=== PATIENT | female | born 1960 | race Caucasian/White ===

== ENCOUNTER → 2017-06-22 | Outpatient (CLI) | payer OTHER | END | disposition home or self-care (01) | LOC: GMAH 17:41 | PROVIDERS: ATTEND Family Medicine | DX: M54.5 Low back pain (principal) ==

== ENCOUNTER → 2017-09-07 | Outpatient (CLI) | payer OTHER ==
--- NOTE | 2017-09-08 07:57 | MRI ---
EXAM DESCRIPTION: Abdomen w/wo Contrast CLINICAL HISTORY: 57 years Female, NEOPLASM OF UNCERTAIN BEHAVIOR OF LIVER COMPARISON: No comparison images are available at this institution. TECHNIQUE: Pre and postcontrast multiplanar multisequence magnetic resonance imaging of the abdomen was performed using liver protocol. FINDINGS: 4 lesions are demonstrated within the right lobe of the liver. These lesions are hyperintense on T2 with the exception of the lesion seen in segment VII posteriorly which shows a central scar. Postcontrast imaging of these lesions show interrupted peripheral nodular enhancement with delayed centripetal filling consistent with cavernous hemangiomas. A benign nonenhancing lesion is seen in the left lobe of the liver segment II consistent with a cyst and or hamartoma. No aggressive liver lesions are present. No significant intrahepatic ductal dilatation. Liver is normal in size and signal intensity. Gallbladder and biliary system are unremarkable. No pancreatic mass or pancreatic ductal dilatation. The pancreatic inflammation. Normal spleen size. Normal-appearing bilateral adrenal glands. Symmetric renal cortical enhancement is seen. No aggressive renal lesions. Normal vascular flow voids. No lymphadenopathy or free fluid. No peritoneal implants. No aggressive marrow infiltrating disease process. IMPRESSION: Benign cavernous hemangiomas of the right lobe of the liver. Benign cyst and or hamartoma left lobe of the liver. Electronically signed by: Jorden Marcos MD 09/08/2017 7:56 AM [facility]
--- NOTE | 2017-09-08 16:04 | MAM ---
EXAM DESCRIPTION: Screening Mammogram,Bilateral: Digital Mammography CLINICAL HISTORY: 57 years Female SCREENING no complaints. Mother with breast cancer. Postmenopausal. No HRT. Prior right breast biopsy. COMPARISON: 2-D digital screening bilateral study 08/29/2013 and 08/09/2009.. No prior reports available. TECHNIQUE: Bilateral CC and MLO projection full-field images, 2-D digital screening mammographic technique. CAD was utilized. FINDINGS: The breast parenchymal density pattern is: Extremely dense breast tissue, which lowers the sensitivity of mammography. No skin thickening or nipple retraction bilateral solitary microcalcifications. Bilateral vascular calcifications. Bilateral intramammary lymph nodes. No focal, stellate mass or density, focal asymmetry , and no suspicious microcalcifications bilaterally. Stable mammograms compared to the prior study, taking into account differences in mammographic technique. IMPRESSION: BI-RADS CATEGORY: 2 - BENIGN FINDINGS. FOLLOW UP: Routine digital bilateral screening, one year interval from August 2017. Written communication explaining the IMPRESSION and follow-up, will be mailed to the patient and referring health care provider. According to the [employer], yearly mammograms are recommended starting at age 40 and continuing as long as a woman is in good health. Any breast change noted on a breast self-exam should be reported promptly to the patient's healthcare provider. Breast MRI is recommended for women with an approximately 20-25% or greater lifetime risk of breast cancer, including women with a strong family history of breast or ovarian cancer and women who have been treated for Hodgkin's disease. A negative mammographic report should not delay tissue diagnosis in patients with significant clinical history or physical findings. Extremely dense breast tissue limits the sensitivity of digital mammography. Electronically signed by: Vaughn Alicia MD 09/08/2017 4:03 PM [facility]
== END | disposition home or self-care (01) ==
LOC: MRI 07:44
PROVIDERS: ATTEND Family Medicine
DX: D37.6 Neoplasm of uncertain behavior of liver, gallbladder and bile ducts (principal)
CPT/HCPCS: 74183; 80048; 85025; G0202

== ENCOUNTER → 2020-04-09 | Outpatient (CLI) | payer OTHER ==
--- NOTE | 2020-04-09 10:32 | RAD ---
XR HIP 2 OR MORE VIEWS, XR HIP 2 OR MORE VIEWS, XR PELVIS 1-2 VIEWS HISTORY: 59 years Female HIP PAIN COMPARISON: None. TECHNIQUE: 2 views of bilateral hips as well as a single AP view of the pelvis. FINDINGS: Sacrum partially obscured by superimposed bowel gas. No evidence of acute fracture or dislocation. Severe joint space narrowing of bilateral hips, with [id number] apposition. Subchondral sclerosis and cystic formation is demonstrated bilaterally, consistent with degenerative joint disease. Moderate degenerative changes of the pubic symphysis. Sacroiliac joints appear patent. Small curvilinear metallic structures project over the left lower quadrant of the abdomen, which may represent sequelae of prior surgery. 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 Moderate degenerative changes of the pubic symphysis. No acute osseous injury observed in the hips or pelvis. Electronically signed by: Matthias Dumont MD 04/09/2020 10:30 AM CDT
--- NOTE | 2020-04-09 10:32 | RAD ---
XR HIP 2 OR MORE VIEWS, XR HIP 2 OR MORE VIEWS, XR PELVIS 1-2 VIEWS HISTORY: 59 years Female HIP PAIN COMPARISON: None. TECHNIQUE: 2 views of bilateral hips as well as a single AP view of the pelvis. FINDINGS: Sacrum partially obscured by superimposed bowel gas. No evidence of acute fracture or dislocation. Severe joint space narrowing of bilateral hips, with [id number] apposition. Subchondral sclerosis and cystic formation is demonstrated bilaterally, consistent with degenerative joint disease. Moderate degenerative changes of the pubic symphysis. Sacroiliac joints appear patent. Small curvilinear metallic structures project over the left lower quadrant of the abdomen, which may represent sequelae of prior surgery. 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 Moderate degenerative changes of the pubic symphysis. No acute osseous injury observed in the hips or pelvis. Electronically signed by: Matthias Dumont MD 04/09/2020 10:30 AM CDT
--- NOTE | 2020-04-09 10:33 | RAD ---
XR HIP 2 OR MORE VIEWS, XR HIP 2 OR MORE VIEWS, XR PELVIS 1-2 VIEWS HISTORY: 59 years Female HIP PAIN COMPARISON: None. TECHNIQUE: 2 views of bilateral hips as well as a single AP view of the pelvis. FINDINGS: Sacrum partially obscured by superimposed bowel gas. No evidence of acute fracture or dislocation. Severe joint space narrowing of bilateral hips, with [id number] apposition. Subchondral sclerosis and cystic formation is demonstrated bilaterally, consistent with degenerative joint disease. Moderate degenerative changes of the pubic symphysis. Sacroiliac joints appear patent. Small curvilinear metallic structures project over the left lower quadrant of the abdomen, which may represent sequelae of prior surgery. 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 Moderate degenerative changes of the pubic symphysis. No acute osseous injury observed in the hips or pelvis. Electronically signed by: Matthias Dumont MD 04/09/2020 10:30 AM CDT
== END ==
LOC: RAD 08:17
PROVIDERS: ATTEND Orthopaedic Surgery
DX: Z01.818 Encounter for other preprocedural examination (principal); M16.0 Bilateral primary osteoarthritis of hip

== ENCOUNTER 2020-04-25 06:06 | Inpatient (IN) | payer OTHER ==
[~2020-04-25 06:06] MED LIST: SODIUM CHL 0.9% 100ML MINI-BAG 100 ML IVPB ONE; SODIUM CHLORIDE 0.9% (FLUSH) 10 ML SYG ONE; SODIUM CHLORIDE 0.9% 1000ML 1,000 ML ONE; SODIUM CHLORIDE 0.9% 100ML 100 ML IVPB ONE; SODIUM CHLORIDE 0.9% 250ML 250 ML ONE; TRANEXAMIC ACID 1,000 MG/10 ML VIAL ONE; VANCOMYCIN HCL INJ 1,000 MG VIAL IVPB ONE; ceFAZolin SODIUM 1 GM VIAL ONE
[2020-04-25] MEDS ORDERED: VANCOMYCIN HCL INJ 1,000 MG VIAL IVPB ONE ×3 (06:21→06:52)
[2020-04-25] MEDS ORDERED: ceFAZolin SODIUM 1 GM VIAL ONE (06:21)
[2020-04-25] MEDS ORDERED: BUPIVACAINE 0.5% 30 ML VIAL INJ ONE ×3 (06:21→06:52)
[2020-04-25] MEDS ORDERED: BUPIVACAINE LIPOSOME 13.3 MG/ML VIAL INJ ONE ×2 (06:22→06:52)
[2020-04-25] MEDS ORDERED: ELECTROLYTE-A 1,000 ML IVS ONE ×2 (06:33→08:08)
[2020-04-25] MEDS ORDERED: KETAMINE HCL 100 MG/ML VIAL ONE (06:33)
[2020-04-25] MEDS ORDERED: HYDROmorphone HCL INJ 2 MG/ML VIAL ONE (06:33)
[2020-04-25] MEDS ORDERED: MIDAZOLAM INJ 5 MG/5 ML VIAL ONE (06:33)
[2020-04-25] MEDS ORDERED: TRANEXAMIC ACID 1,000 MG/10 ML VIAL IV ONE (06:36)
[2020-04-25] MEDS ORDERED: ceFAZolin SODIUM 1 GM VIAL IRRIG ONE (06:52)
[2020-04-25] MEDS ORDERED: EPINEPHrine HCL AMP 1 MG/ML AMP ONE (07:00)
[2020-04-25] MEDS ORDERED: diphenhydrAMINE HCL 50 MG/ML VIAL ONE (07:00)
[2020-04-25] MEDS ORDERED: DEXAMETHASONE INJ 10 MG/ML VIAL ONE (07:00)
[2020-04-25] MEDS ORDERED: PHENYLEPHRINE INJ 1ML 10 MG/ML VIAL ONE (07:00)
[2020-04-25] MEDS ORDERED: PROPOFOL 200 MG/20 ML VIAL IV ONE (07:00)
[2020-04-25] MEDS ORDERED: LIDOCAINE 1% 10 ML VIAL INJ ONE (07:00)
[2020-04-25] MEDS ORDERED: SODIUM CHLORIDE 0.9% 50 ML VIAL ONE (07:00)
[2020-04-25] MEDS ORDERED: ePHEDrine SULF 50 MG/ML ONE (07:00)
[2020-04-25] MEDS ORDERED: MAGNESIUM SULFATE INJ 1 GM/2 ML VIAL ONE (07:00)
[2020-04-25] MEDS ORDERED: SODIUM CHLORIDE 0.9% (FLUSH) 10 ML SYG IV PRN (09:33)
[2020-04-25] MEDS ORDERED: BENZOCAINE-MENTH LOZ (CEPACOL) 1 EA LOZ MT PRN (09:33)
[2020-04-25] MEDS ORDERED: TEMAZEPAM 15 MG CAP PO PRN (09:33)
[2020-04-25] MEDS ORDERED: ACETAMINOPHEN 500 MG TAB PO PRN (09:33)
[2020-04-25] MEDS ORDERED: TRANEXAMIC ACID INJ 1,000 MG in SODIUM CHLORIDE 0.9% 100ML 100 ML IVPB ONE (09:33)
[2020-04-25] MEDS ORDERED: ACETAMINOPHEN 325 MG TAB PO PRN (09:33)
[2020-04-25] MEDS ORDERED: ZOLPIDEM TARTRATE 5 MG TAB PO PRN (09:33)
[2020-04-25] MEDS ORDERED: MORPHINE SULFATE INJ 10 MG/ML VIAL IM PRN (09:33)
[2020-04-25] MEDS ORDERED: MAGNESIUM HYDROXIDE 30 ML UD PO PRN (09:33)
[2020-04-25] MEDS ORDERED: traMADol HCL 50 MG TAB PO PRN (09:33)
[2020-04-25] MEDS ORDERED: BISACODYL SUPPOSITORY 10 MG PR PRN (09:33)
[2020-04-25] MEDS ORDERED: MORPHINE SULFATE INJ 10 MG/ML VIAL IV PRN (09:33)
[2020-04-25] MEDS ORDERED: NALOXONE HCL INJ 0.4 MG/ML VIAL IV PRN (09:33)
[2020-04-25] MEDS ORDERED: PROMETHAZINE HCL INJ 25 MG in SODIUM CHLORIDE 0.9% 50ML 50 ML IVPB PRN (09:33)
[2020-04-25] MEDS ORDERED: ALUMINUM & MAGNESIUM HYDROXIDE 30 ML UD PO PRN (09:33)
[2020-04-25] MEDS ORDERED: CYCLOBENZAPRINE HCL 10 MG TAB PO PRN (09:33)
[2020-04-25] MEDS ORDERED: PROMETHAZINE HCL INJ 12.5 MG in SODIUM CHLORIDE 0.9% 50ML 50 ML IVPB PRN (09:33)
[2020-04-25] MEDS ORDERED: DEX 5% W/NACL 0.45% 1000ML 1,000 ML IVS PRN (09:33)
[2020-04-25] MEDS ORDERED: SODIUM CHLORIDE 0.9% 1000ML 1,000 ML ONE (09:58)
[2020-04-25] MEDS ORDERED: MORPHINE PCA 1 MG/ML 100 ML BAG IVPB SCH (10:00)
[2020-04-25] MEDS ORDERED: CADD ADMIN SET 1 EA PKG INJ ONE (10:05)
[2020-04-25] MEDS: IV SET AND CAP CHANGE INJ INJ SCH (11:14)
--- NOTE | 2020-04-25 11:36 | RAD ---
EXAM DESCRIPTION: Pelvis x-ray single view CLINICAL HISTORY: 60 years Female, post-op COMPARISON: Previous x-ray pelvis April 09, 2020 FINDINGS: X-ray pelvis shows large amount of fecal material in the rectal region. Surgical clips in the mid lower abdomen. Total left hip arthroplasty is present with air in the soft tissues of the left hip. Degenerative changes at the pubic symphysis. High-grade cartilage loss in the right hip is seen with sclerotic superior right femoral head and right acetabular roof. Bones of the pelvic ring appear intact. IMPRESSION: Total left hip arthroplasty. No complicating fracture. Advanced osteoarthrosis of the right hip. Electronically signed by: Benigno Tapia MD 04/25/2020 11:35 AM CDT
--- NOTE | 2020-04-25 11:38 | RAD ---
EXAM DESCRIPTION: Hip x-ray,Left 2 Views CLINICAL HISTORY: 60 years, Female, post-op COMPARISON: Previous left hip x-ray April 09, 2020 TECHNIQUE: AP and frog leg lateral views of the left hip FINDINGS: 2 x-ray views of the left hip reveal total left hip arthroplasty. Air in the soft tissues consistent with recent surgery. No complicating fracture. Bones of the left hemipelvis has included appear intact. Normal alignment of the acetabular and femoral components on AP and frog leg lateral x-ray views. IMPRESSION: Total left hip arthroplasty. Electronically signed by: Benigno Tapia MD 04/25/2020 11:37 AM CDT
[2020-04-25] MEDS ORDERED: diphenhydrAMINE HCL 50 MG/ML VIAL IV PRN (11:58)
[2020-04-25] MEDS ORDERED: SULFA/TRIMETH 800/160 (DS) TAB 1 EA TAB PO ONE (12:30)
--- NOTE | 2020-04-25 13:15 | CONS ---
SUPERVISING PHYSICIAN: King Garcia MD DATE OF CONSULTATION: 04/25/20 HISTORY OF PRESENT ILLNESS: This is a 60-year-old female patient who has had a history of osteoarthritis of the left hip. She has tried conservative measures and she have failed to gain any relief from her pain. She requested Dr. Mj Kirby, orthopedic surgeon, for operative intervention. She was admitted this morning for left total hip replacement performed by Dr. Kirby. She had no problems intraoperatively and I am seeing her postoperatively on the Medical/Surgical Floor. PAST MEDICAL HISTORY: 1. Seizure disorder. It is unknown when her last seizure was. She is presently on medication. 2. Rheumatoid arthritis. 3. Fibromyalgia. PAST SURGICAL HISTORY: 1. Hysterectomy. 2. Lumpectomy. OUTPATIENT MEDICATIONS: Per the EMR. ALLERGIES: PENICILLIN. FAMILY HISTORY: Noncontributory. SOCIAL HISTORY: She lives in [place]. She denies ETOH, tobacco or illicit drug. Use REVIEW OF SYSTEMS: Negative except as per history of present illness. PHYSICAL EXAMINATION: VITAL SIGNS: Temperature 96.6, heart rate 83, blood pressure 91/64, respiratory rate 16, O2 saturation 92% on 4 liters nasal cannula. GENERAL: This is a 60-year-old female patient lying in her hospital bed. She is in no acute distress. HEENT: Normocephalic, atraumatic. Pupils are equal and reactive. Oropharynx is clear. NECK: Supple without mass. RESPIRATORY: Essentially clear to auscultation bilaterally. CHEST: There is equal rise and fall of the chest with inspiration and expiration. CARDIOVASCULAR: Regular rate and rhythm. GASTROINTESTINAL: Abdomen is soft, nondistended, nontender. Bowel sounds are positive. EXTREMITIES: She has a dressing to her left lateral hip that is dry and intact. Bilateral pedal pulses are palpable at +2. NEUROLOGIC: She is somewhat sleepy, but answers questions appropriately. She is oriented x3. Cranial nerves II-XII are grossly intact as tested. SKIN: Warm and dry. LABORATORY: WBCs 3.9, hemoglobin 13.6, hematocrit 39.5. Sodium 133, potassium 3.4, chloride 98. Urinalysis shows small amount of bilirubin, 2+ urine bacteria and 1+ budding yeast. UDS is positive for opiates, otherwise is negative. X- rays are per the EMR. IMPRESSION: 1. Osteoarthritis of the left hip status post left total hip replacement performed by Dr. Mj Kirby, orthopedic surgeon, postoperative day #0. 2. Seizure disorder. 3. Rheumatoid arthritis. 4. Fibromyalgia. PLAN: We will continue present supportive care. Orthopedic issues will be per Dr. Mj Kirby, orthopedic surgeon. She will begin her physical therapy for strengthening and conditioning tomorrow with physical therapy department at the hospital. Her home medications have been restarted. I will repeat some of her lab in the morning. I encouraged good pulmonary hygiene. We will continue to monitor the patient closely and follow as needed. #[id number] [facility]
[2020-04-25] MEDS: ceFAZolin SODIUM 2 GM in SODIUM CHL 0.9% 50ML MIN-BAG+ 50 ML IVPB SCH ×2 (17:07→23:30)
[2020-04-25] MEDS: CELECOXIB 100 MG CAP PO SCH (18:37)
[2020-04-25] MEDS: VANCOMYCIN HCL INJ 1,000 MG in SODIUM CHLORIDE 0.9% 250ML 250 ML IVPB SCH (18:37)
[2020-04-25] MEDS ORDERED: DOCUSATE CALCIUM 240 MG CAP ONE (19:08)
[2020-04-25] MEDS ORDERED: lamoTRIgine 100 MG TAB ONE (19:08)
[2020-04-25] MEDS ORDERED: ENOXAPARIN SODIUM 30 MG/0.3 ML SYG SUBCU ONE (19:09)
[2020-04-25] MEDS ORDERED: PREGABALIN 100 MG CAP ONE (19:09)
[2020-04-25] MEDS ORDERED: tiZANidine 4 MG TAB ONE (19:09)
[2020-04-25] MEDS ORDERED: FOLIC ACID 1 MG TAB ONE (19:09)
[2020-04-25] MEDS ORDERED: VENLAFAXINE XR 75 MG CAP ONE (19:09)
[2020-04-25] MEDS: AMITRIPTYLINE HCL 25 MG TAB PO SCH (20:45)
[2020-04-25] MEDS: lamoTRIgine 100 MG TAB PO SCH (20:47)
[2020-04-25] MEDS: FOLIC ACID 1 MG TAB PO SCH (20:47)
[2020-04-25] MEDS: PREGABALIN 75 MG CAP PO SCH (20:53)
[2020-04-25] MEDS: DOCUSATE CALCIUM 240 MG CAP PO SCH (20:54)
[2020-04-25] MEDS: rifAMPin 300 MG CAP PO SCH (20:57)
[2020-04-25] MEDS: tiZANidine 4 MG TAB PO SCH (20:58)
[2020-04-25] MEDS ORDERED: LAMOTRIGINE 150 MG PO SCH (21:00)
[2020-04-25] MEDS ORDERED: ALENDRONATE SODIUM 70 MG PO SCH (21:00)
[2020-04-25] MEDS ORDERED: NON-FORMULARY MEDICATION 1 EA MIS (Venlafaxine Hcl [Venlafaxine Hcl Er] 150 MG) PO SCH (21:00)
[2020-04-25] MEDS ORDERED: AMITRIPTYLINE HCL 10 MG TAB PO SCH (21:00)
[2020-04-25] MEDS: ONDANSETRON INJ 4 MG/2 ML VIAL IV PRN (21:27)
[2020-04-25] MEDS: ENOXAPARIN SODIUM 30 MG/0.3 ML SYG SUBCU SCH (23:00)
[2020-04-26] MEDS: HYDROcodone 5MG/APAP 325MG 1 EA TAB PO PRN ×3 (00:33→18:02)
[2020-04-26] MEDS: VANCOMYCIN HCL INJ 1,000 MG in SODIUM CHLORIDE 0.9% 250ML 250 ML IVPB SCH (05:39)
[2020-04-26] MEDS: ONDANSETRON INJ 4 MG/2 ML VIAL IV PRN (06:23)
[2020-04-26] MEDS: ceFAZolin SODIUM 2 GM in SODIUM CHL 0.9% 50ML MIN-BAG+ 50 ML IVPB SCH (07:35)
[2020-04-26] MEDS: CELECOXIB 100 MG CAP PO SCH ×2 (07:35→17:24)
--- NOTE | 2020-04-26 08:23 | OP ---
DATE OF PROCEDURE: 04/25/20 PREOPERATIVE DIAGNOSIS: 1. Osteoarthritis of the left hip. POSTOPERATIVE DIAGNOSIS: 1. Osteoarthritis of the left hip. PROCEDURE: 1. Left total hip arthroplasty. SURGEON: Mj Kirby MD. [employer] ARCHITECT: Vaughn Jeffrey CST, SA-C. ANESTHESIA: General anesthesia. COMPLICATIONS: None. FINDINGS: Severe arthritis of the hip. INDICATION: Ms. Gonzalez has a history of severe pain in both hips with diagnoses of both osteoarthritis and rheumatoid arthritis. Because of her ongoing pain and deformity secondary to that, she has requested operative intervention. After discussing the risks, benefits and alternatives to that, the patient has given informed consent for total hip arthroplasty. PROCEDURE: The patient was brought to the Operating Room and placed in supine position. General anesthesia was induced and the patient was transitioned into the lateral decubitus position. After transitioning to the lateral decubitus position, the leg and hemipelvis were sterilely prepped and draped. Following prepping and draping, the hip was approached with a lateral incision. The iliotibial band was split and the anterior one-third of the abductor musculature was elevated. Capsulotomy was performed and the hip was dislocated. Bone graft was taken from the femoral head and after removal of the bone graft, the primary femoral neck cut was made. Following primary femoral neck cut, the acetabulum was exposed. The labrum was removed and sequential reaming was undertaken. Once appropriate size reamer was used, a trial cup was placed. The trial cup fit well and the final cup was impacted into place. The fixation was augmented with three screws. The was placed. The hip was externally rotated and the femoral canal was exposed. Sequential broaching was undertaken and with final broach in place, the hip was reduced. Following reduction, the leg was taken through a range of motion. There was no evidence of pending dislocation and no impingement. The hip was then dislocated and trial component was removed. The final component was impacted in place. The hip was again taken through a range of motion. Leg lengths appeared to be equal. Following that, the wound was very thoroughly irrigated and the abductor musculature was reapproximated. The iliotibial band was closed and the skin was closed with a combination of running and interrupted subcuticular stitches. Sterile dressings were placed. The patient was awoken from anesthesia and taken to the Recovery. POSTOPERATIVE PLAN: The patient will begin partial weightbearing on postoperative day 1. COMPONENTS: Domenico Accolade II stem size 6, Tritanium cup size 48 and 32 mm head. [facility][id number] [facility]
--- NOTE | 2020-04-26 08:29 | PN ---
SUPERVISING PHYSICIAN: King Garcia MD DATE: 04/26/20 SUBJECTIVE: The patient is sitting up in bed. She is nauseated. She has received an antiemetic. She will have physical therapy later today. Otherwise, she has no complaints of chest pain or abdominal pain other than the nausea. She said she slept fairly well last night and has had minimal pain. OBJECTIVE: VITAL SIGNS: Temperature 98.3, heart rate 89, blood pressure 110/67, respiratory rate 18,O2 saturation 98% on 1 liter nasal cannula. RESPIRATORY: Essentially clear to auscultation bilaterally. CARDIAC: Regular rate and rhythm. GASTROINTESTINAL: Abdomen is soft, nondistended, nontender. Bowel sounds are positive. EXTREMITIES: She has a dressing to the left lateral hip that is dry and intact. NEUROLOGIC: Awake, alert and oriented times three. LABORATORY: Hemoglobin 11.9, hematocrit 35. Electrolytes are basically within normal limits with the exception of her calcium is slightly low at 7.9. All other labs and films have been reviewed via the EMR. ASSESSMENT: 1. Osteoarthritis of the left hip status post left total hip replacement performed by Dr. Mj Kirby, orthopedic surgeon, postoperative day #1. 2. Seizure disorder. 3. Rheumatoid arthritis. 4. Fibromyalgia. PLAN: We will continue present supportive care. Orthopedic issues will be per Dr. Mj Kirby, orthopedic surgeon. She will begin her physical therapy for strengthening and conditioning. She most likely will do outpatient physical therapy at the [facility]. I encouraged good pulmonary hygiene. We will continue to monitor the patient closely and follow as needed. #[id number] ADDEMDUM: 0820 nursing reported patient having a seizure. She was given ativan IV and the seizure lasted approximately minutes. She was postictal and a lamictal level was ordered. No further seizure activity noted. 8230 Physical therapy reported patient did well during first therapy session. She is somewhat sleepy but has had no further seizure activity. [facility]
[2020-04-26] MEDS: MAGNESIUM OXIDE 400 MG TAB PO SCH (09:42)
[2020-04-26] MEDS: rifAMPin 300 MG CAP PO SCH ×2 (09:42→20:48)
[2020-04-26] MEDS: ENOXAPARIN SODIUM 30 MG/0.3 ML SYG SUBCU SCH ×2 (13:08→22:38)
[2020-04-26] MEDS: lamoTRIgine 100 MG TAB PO SCH (20:40)
[2020-04-26] MEDS: DOCUSATE CALCIUM 240 MG CAP PO SCH (20:40)
[2020-04-26] MEDS: AMITRIPTYLINE HCL 25 MG TAB PO SCH (20:41)
[2020-04-26] MEDS: tiZANidine 4 MG TAB PO SCH (20:41)
[2020-04-26] MEDS: FOLIC ACID 1 MG TAB PO SCH (20:41)
[2020-04-26] MEDS: PREGABALIN 75 MG CAP PO SCH (20:43)
[2020-04-26] MEDS: VENLAFAXINE XR 75 MG CAP PO SCH (20:47)
[2020-04-27] MEDS: HYDROcodone 5MG/APAP 325MG 1 EA TAB PO PRN ×4 (05:26→18:22)
[2020-04-27] MEDS: CELECOXIB 100 MG CAP PO SCH ×2 (07:54→17:28)
[2020-04-27] MEDS: MAGNESIUM OXIDE 400 MG TAB PO SCH (09:07)
[2020-04-27] MEDS: rifAMPin 300 MG CAP PO SCH ×2 (09:07→20:35)
[2020-04-27] MEDS: SODIUM CHLORIDE 0.9% (FLUSH) 10 ML SYG IV SCH ×2 (09:07→20:36)
[2020-04-27] MEDS: ENOXAPARIN SODIUM 30 MG/0.3 ML SYG SUBCU SCH ×2 (11:37→23:50)
--- NOTE | 2020-04-27 12:57 | PN ---
DATE: 04/26/20 SUBJECTIVE: Christie is doing well right now. She has good pain control. OBJECTIVE: She is afebrile. Vital signs are stable. Dressing is clean, dry and intact. ASSESSMENT: Status post total hip arthroplasty. PLAN: Begin weightbearing as tolerated. [facility][id number] [facility]
--- NOTE | 2020-04-27 13:13 | PN ---
DATE: 04/27/20 SUBJECTIVE: Christie is doing well, however, yesterday it was reported that she did have a seizure. We believe this is secondary to her not having her Effexor. After initiation of her Effexor and Ativan, the seizure activity stopped. She is doing well today and has had no problems. OBJECTIVE: She is awake and fully able to participate in both physical and mental exams. She is afebrile. Vital signs are stable. Wound is clean with no signs or symptoms of infection. ASSESSMENT: 1. Status post total hip arthroplasty. 2. Seizure. PLAN: Continue on her current weightbearing status. At this point, she has no evidence of seizure activity. To that end, she is going to likely be discharged tomorrow with appropriate followup with outpatient therapy.. [facility][id number] [facility]
[2020-04-27] MEDS: VENLAFAXINE XR 75 MG CAP PO SCH (20:31)
[2020-04-27] MEDS: lamoTRIgine 100 MG TAB PO SCH (20:32)
[2020-04-27] MEDS: DOCUSATE CALCIUM 240 MG CAP PO SCH (20:33)
[2020-04-27] MEDS: FOLIC ACID 1 MG TAB PO SCH (20:33)
[2020-04-27] MEDS: AMITRIPTYLINE HCL 25 MG TAB PO SCH (20:34)
[2020-04-27] MEDS: PREGABALIN 75 MG CAP PO SCH (20:34)
[2020-04-27] MEDS: tiZANidine 4 MG TAB PO SCH (20:35)
[2020-04-28] MEDS: HYDROcodone 5MG/APAP 325MG 1 EA TAB PO PRN ×2 (04:12→08:48)
--- NOTE | 2020-04-28 08:42 | PN ---
SUPERVISING PHYSICIAN: King Garcia MD DATE: 04/27/20 SUBJECTIVE: The patient has not had anymore seizure activity. She is back to her baseline mental status. She did well with physical therapy. We did discuss disposition of hopefully discharging tomorrow. OBJECTIVE: VITAL SIGNS: Temperature 98.2, heart rate 94, blood pressure 115/68, respiratory rate 16,oxygen saturation 95% on room air. . GENERAL: Patient is resting comfortably. Does not look to be in any acute distress. CHEST: Clear to auscultation. CARDIAC: Regular rate and rhythm. GASTROINTESTINAL: Abdomen is soft, nontender. Bowel sounds are positive. EXTREMITIES: She has a dressing to the left hip that is clean and dry. Distal pulses strong, capillary refill brisk.. NEUROLOGIC: Alert and oriented times three. LABORATORY: Postoperative hemoglobin 11.9, hematocrit 35.0. Chemistries yesterday showed normal electrolytes, creatinine 0.48. Lamictal level pending. She had a little bit of bacteria in her urine showing 2+, no WBCs, 1 RBC, small budding yeast. ASSESSMENT: 1. Osteoarthritis of the left hip status post left total hip replacement performed by Dr. Mj Kirby, orthopedic surgeon, postoperative day #2. 2. Seizure disorder with no additional seizure activity. 3. Rheumatoid arthritis. 4. Fibromyalgia. PLAN: We will continue to follow patient as she continues with physical therapy for conditioning and strengthening. I anticipate she will discharge tomorrow. [facility] an [facility]. I encouraged good pulmonary hygiene. We will continue to watch the patient closely. Until we can discharge her back to outpatient management, we will continue to monitor and treat as needed. #[id number] [facility]
[2020-04-28] MEDS: rifAMPin 300 MG CAP PO SCH (09:19)
[2020-04-28] MEDS: MAGNESIUM OXIDE 400 MG TAB PO SCH (09:19)
[2020-04-28] MEDS: CELECOXIB 100 MG CAP PO SCH (09:19)
[2020-04-28] MEDS: SODIUM CHLORIDE 0.9% (FLUSH) 10 ML SYG IV SCH (09:19)
[2020-04-28] MEDS: IV SET AND CAP CHANGE INJ INJ SCH (10:35)
[2020-04-28 11:12] VITALS: BP 115/72; TEMP 98.2; O2SAT 98
[2020-04-28] MEDS: ENOXAPARIN SODIUM 30 MG/0.3 ML SYG SUBCU SCH (12:55)
[2020-04-28] MEDS ORDERED: BISACODYL SUPPOSITORY 10 MG PR ONE (21:00)
[2020-04-28] MEDS ORDERED: MAGNESIUM HYDROXIDE 30 ML UD PO ONE (21:00)
[2020-05-02] MEDS ORDERED: METHOTREXATE SODIUM 12.5 MG PO SCH (09:00)
--- NOTE | 2020-05-21 10:23 | DS ---
SUPERVISING PHYSICIAN: King Garcia MD ADMISSION DIAGNOSIS : 1. Osteoarthritis of the left hip status post left total hip replacement performed by Dr. Mj Kirby, orthopedic surgeon, postoperative day #0. 2. Seizure disorder. 3. Rheumatoid arthritis. 4. Fibromyalgia. DISCHARGE DIAGNOSIS: 1. Osteoarthritis of the left hip status post left total hip replacement performed by Dr. Mj Kirby, orthopedic surgeon, postoperative day #3. 2. Seizure disorder with no additional seizure activity. 3. Rheumatoid arthritis. 4. Fibromyalgia. REASON FOR HOSPITALIZATION: This is a 60-year-old female patient who has had a history of osteoarthritis of the left hip. She has tried conservative measures and she have failed to gain any relief from her pain. She requested Dr. Mj Kirby, orthopedic surgeon, for operative intervention. She was admitted this morning for left total hip replacement performed by Dr. Kirby. She had no problems intraoperatively and I am seeing her postoperatively on the Medical/Surgical Floor. PROCEDURE: Left total hip arthroplasty performed by Dr. Mj Kirby. Please see his operative note for details. CONSULTATION: Hospitalist services. Please see consultation report for details. RADIOLOGY: No postoperative x-rays were completed. MICROBIOLOGY: No specimens submitted. LABORATORY: Postoperative hemoglobin 11.9, hematocrit 35.0. Chemistries showed normal electrolytes postoperatively with creatinine 0.48. Urinalysis did show 1+ budding yeast with 2+ bacteria, amorphus material, 5 to 10 epithelials. On microscopic exam, dipstick showed only a small amount of bilirubin. HOSPITAL COURSE: Ms. Gonzalez was admitted on 04/25/20 for elective left total hip arthroplasty. She did well intraoperatively. She had no postoperative complications. She did receive physical therapy and was doing well with no complaints. She did have a reported seizure postoperatively, but this resolved with Ativan. She had no additional seizures after Ativan and was clinically improving well enough to continue with outpatient management. PLAN: Ms. Gonzalez was discharged on 04/28/20 to continue all her previous medications. New medications prescribed included Xarelto 10 mg per protocol for total hip. Wound management was per Dr. Mj Kirby's instructions. Activities as per physical therapy, to walk with a walker as tolerated. She may shower, no tub baths. Diet was usual diet as tolerated. She is to followup with Dr. Kirby postoperatively in 2 weeks and to start physical therapy at the [facility] on Thursday after discharge. MEDICATIONS PRESCRIBED ON DISCHARGE: 1. Xarelto 10 mg daily for 26 days. 2. Pain management as per Dr. Kirby. DISPOSITION: The patient was discharged to continue with outpatient [facility]. CONDITION ON DISCHARGE: Stable and improved. #[id number] [facility]
== END 2020-04-28 12:54 | disposition home or self-care (01) | DRG 470 ==
LOC: AMB 06:06 → MS 10:25
PROVIDERS: ADMIT Orthopaedic Surgery; ATTEND Nurse Practitioner Family
PROC: 0SRB0JA Replacement of Left Hip Joint with Synthetic Substitute, Uncemented, Open Approach (ICD-10-PCS; principal; 2020-04-25 07:30)
DX: M16.12 Unilateral primary osteoarthritis, left hip (principal); M81.0 Age-related osteoporosis without current pathological fracture; G40.909 Epilepsy, unspecified, not intractable, without status epilepticus; M06.9 Rheumatoid arthritis, unspecified; M79.7 Fibromyalgia; Z88.0 Allergy status to penicillin; Z79.1 Long term (current) use of non-steroidal anti-inflammatories (NSAID); Z79.891 Long term (current) use of opiate analgesic; Z79.899 Other long term (current) drug therapy; Z66 Do not resuscitate

== ENCOUNTER → 2020-06-18 | Outpatient (CLI) | payer OTHER | END | disposition home or self-care (01) | LOC: LAB.O 08:19 | PROVIDERS: ATTEND Orthopaedic Surgery | DX: Z01.818 Encounter for other preprocedural examination (principal) ==